=== PATIENT | female | born 1960 | race Caucasian/White ===

== ENCOUNTER → 2018-03-10 | Outpatient (CLI) | payer OTHER ==
[~2018-03-10] MED LIST: BUSP15; Butalbital-Caf1 EACH PO; CALC1.25T; CYAN1000 PO; Estradiol1 MG PO; FENT25TP; Flexeril 10 mg10 MG PO; HYDACE10B; HYDHCL25; LIDO700A20 TOP; Norco 10-325 T1 EACH PO; OMEP20ER; QVAR7.3 G1; Robaxin500 MG PO; SOMA250 MG; TRAZ100; VENL150ER; Verotin-Gr Cap1 EACH PO
[2018-03-13 20:53] LABS: Methylmalonic Acid mmol/molCRE 0.6 (0.0-3.6); Methylmalonic Acid umol/L 3.3 umol/L
== END | disposition home or self-care (01) ==
LOC: LAB 17:14 → LAB SHORT 17:14
PROVIDERS: Nurse Practitioner Family
DX: G25.81 Restless legs syndrome (principal)
CPT/HCPCS: 82570; 83921

== ENCOUNTER → 2019-11-04 | Outpatient (CLI) | payer OTHER | END | disposition home or self-care (01) | LOC: LAB SHORT 18:30 → LAB 18:30 | DX: R30.9 Painful micturition, unspecified (principal) | CPT/HCPCS: 87077; 87086; 87186 ==

== ENCOUNTER → 2020-08-30 | Outpatient (CLI) | payer OTHER ==
[~2020-08-30] MED LIST changes: +B-121000 MC7 PO; +Buspirone HCl30 MG PO; +CYCL10 PO; +ESTRADIOL1 MG PO; +FURO20 PO; +HYDHCL25 PO; +IPRAT-ALBUT 0.5-3 ML INH; +LISINOPRIL-HCT1 EAC1 PO; +Loratadine10 MG PO; +MELO7.5 PO; +Milk Thistle175 M1 PO; +Norco 7.5-3251 EACH; +ONDA4ODT MM; +POTA10T PO; +QVAR REDIHALE10.6 G2 INH; +SPIR50 PO; +VENL150ER PO; +ZEBUTAL 50-3251 EAC1
[2020-08-30 20:11] LABS: BASOPHILS ABSOLUTE AUTO 0.05 K/mm3 (0.00-0.23); BASOPHILS PERCENT AUTO 1 % (0-2); EOSINOPHILS ABSOLUTE AUTO 0.02 K/mm3 (0.00-0.68); EOSINOPHILS PERCENT AUTO 0 % (0-6); Hematocrit 41.3 % (33.0-51.0); Hemoglobin 14.3 g/dL (11.5-16.0); IMMATURE GRAN ABSOLUTE AUTO 0.01 K/mm3 (0.00-0.10); IMMATURE GRAN PERCENT AUTO 0 % (0-1); LYMPHOCYTES ABSOLUTE AUTO 1.24 K/mm3 (0.84-5.20); LYMPHOCYTES PERCENT AUTO 22 % (21-46); MONOCYTES ABSOLUTE AUTO 0.65 K/mm3 (0.16-1.47); MONOCYTES PERCENT AUTO 12 % (4-13); Mean Corpuscular HGB 35.7 pg (26.0-34.0); Mean Corpuscular HGB Conc 34.6 g/dL (31.5-36.5); Mean Corpuscular Volume 103 fL (80-100); Mean Platelet Volume 12.3 fL (9.1-12.4); NEUTROPHILS ABSOLUTE AUTO 3.56 K/mm3 (1.96-9.15); NEUTROPHILS PERCENT AUTO 64 % (41-73); Platelet Count 126 K/mm3 (150-400); RDW Coefficient Variation 13.6 % (11.7-14.2); RDW Standard Deviation 51.8 fL (35.1-46.3); Red Blood Cell Count 4.01 M/mm3 (3.80-5.20); White Blood Cell Count 5.53 K/mm3 (4.00-11.30)
[2020-08-30 20:54] LABS: Alanine Aminotransfer (ALT/SGP 74 U/L (12-78); Albumin, Blood 2.3 g/dL (3.4-5.0); Albumin/Globulin Ratio 0.6 (0.8-1.8); Alk Phos 334 U/L (50-136); Anion Gap 6 mmol/L (6-16); Aspartate Aminotrans (AST/SGOT 136 U/L (12-37); Bilirubin, Total 1.8 mg/dL (0.1-1.0); Blood Urea Nitrogen 7 mg/dL (8-24); Bun/Creatinine Ratio 14.2 (12.0-20.0); CO2, Blood 23 mmol/L (21-32); Calcium, Blood 8.7 mg/dL (8.5-10.1); Chloride, Blood 108 mmol/L (98-108); Creatinine, Blood 0.49 mg/dL (0.40-1.00); Globulin, Blood 3.8 g/dL (2.2-4.0); Glomerular Filtration Rate >60 (60-); Glucose, Blood 95 mg/dL (70-99); Potassium, Blood 4.6 mmol/L (3.5-5.5); Sodium, Blood 137 mmol/L (136-145); Total Protein, Blood 6.1 g/dL (6.4-8.2)
== END | disposition home or self-care (01) ==
LOC: LAB 19:18 → LAB SHORT 19:18
PROVIDERS: Nurse Practitioner
DX: R14.0 Abdominal distension (gaseous) (principal); R60.0 Localized edema
CPT/HCPCS: 80053; 83880; 85025

== ENCOUNTER 2020-09-16 13:24 | Day surgery (SDC) | payer OTHER ==
[~2020-09-16] VITALS: Ht 157.5 cm; Wt 75.4 kg
[~2020-09-16 13:24] MED LIST changes: -B-121000 MC7 PO; -Buspirone HCl30 MG PO; -CYCL10 PO; -ESTRADIOL1 MG PO; -FURO20 PO; -HYDHCL25 PO; -IPRAT-ALBUT 0.5-3 ML INH; -LISINOPRIL-HCT1 EAC1 PO; -Loratadine10 MG PO; -MELO7.5 PO; -Milk Thistle175 M1 PO; -Norco 7.5-3251 EACH; -ONDA4ODT MM; -POTA10T PO; -QVAR REDIHALE10.6 G2 INH; -SPIR50 PO; -VENL150ER PO; -ZEBUTAL 50-3251 EAC1
[2020-09-16] MEDS ORDERED: Milk Thistle175 M1 PO (14:18)
[2020-09-16] MEDS ORDERED: B-121000 MC7 PO (14:18)
--- NOTE | 2020-09-16 15:14 | NUR ---
09/16/20 1514 Celena Oconnor History, Chart, Medications and Allergies reviewed before start of procedure. MAC CASE WITH DR BAUM. SEE ANETHES[facility] RECORD FOR CARE
--- NOTE | 2020-09-16 16:52 | NUR ---
Patient up to Ambulate independently. Gait steady. Discharge instructions reviewed with patient. Patient verbalizes understanding. Copy given to patient to take home. Discharged via wheelchair to [facility]. BELONGINGS WITH PT. PT [id number]. NO ACUTE CHANGES WHILE IN MY CARE
[2020-09-17] MEDS ORDERED: SPIR50 PO (10:27)
[2020-09-17] MEDS ORDERED: CYCL10 PO (10:27)
[2020-09-17] MEDS ORDERED: POTA10T PO (10:28)
[2020-09-17] MEDS ORDERED: ONDA4ODT MM (10:28)
[2020-09-17] MEDS ORDERED: FURO20 PO (10:28)
[2020-09-17] MEDS ORDERED: IPRAT-ALBUT 0.5-3 ML INH (10:29)
[2020-09-17] MEDS ORDERED: ZEBUTAL 50-3251 EAC1 (10:29)
[2020-09-17] MEDS ORDERED: Norco 7.5-3251 EACH (10:30)
[2020-09-17] MEDS ORDERED: HYDHCL25 PO (10:30)
[2020-09-17] MEDS ORDERED: Loratadine10 MG PO (10:31)
[2020-09-17] MEDS ORDERED: MELO7.5 PO (10:31)
[2020-09-17] MEDS ORDERED: QVAR REDIHALE10.6 G2 INH (10:31)
[2020-09-17] MEDS ORDERED: LISINOPRIL-HCT1 EAC1 PO (10:32)
[2020-09-17] MEDS ORDERED: Buspirone HCl30 MG PO (10:32)
[2020-09-17] MEDS ORDERED: VENL150ER PO (10:32)
[2020-09-17] MEDS ORDERED: ESTRADIOL1 MG PO (10:33)
== END 2020-09-16 22:54 | disposition home or self-care (01) ==
LOC: ORD 13:24 → ORSCMMR 13:24 → ORD 13:45
PROVIDERS: Internal Medicine Gastroenterology
PROC: 0DJ08ZZ Inspection of Upper Intestinal Tract, Via Natural or Artificial Opening Endoscopic (ICD-10-PCS; principal; 2020-09-16 13:45)
DX: K74.60 Unspecified cirrhosis of liver (principal); Z98.84 Bariatric surgery status; Z87.11 Personal history of peptic ulcer disease; R11.0 Nausea; R10.9 Unspecified abdominal pain; K21.9 Gastro-esophageal reflux disease without esophagitis; F41.8 Other specified anxiety disorders; J45.909 Unspecified asthma, uncomplicated; F17.210 Nicotine dependence, cigarettes, uncomplicated; E66.9 Obesity, unspecified; Z68.30 Body mass index [BMI] 30.0-30.9, adult; Z79.899 Other long term (current) drug therapy
CPT/HCPCS: J2704; J7120; U0003

== ENCOUNTER 2020-09-17 09:49 | Emergency (ER) | payer OTHER ==
[~2020-09-17] VITALS: Ht 157.5 cm; Wt 74.8 kg
[~2020-09-17 09:49] MED LIST changes: +B-121000 MC7 PO; +Milk Thistle175 M1 PO
[2020-09-17] MEDS ORDERED: SPIR50 PO (10:27)
[2020-09-17] MEDS ORDERED: CYCL10 PO (10:27)
[2020-09-17] MEDS ORDERED: FURO20 PO (10:28)
[2020-09-17] MEDS ORDERED: POTA10T PO (10:28)
[2020-09-17] MEDS ORDERED: ONDA4ODT MM (10:28)
[2020-09-17] MEDS ORDERED: ZEBUTAL 50-3251 EAC1 (10:29)
[2020-09-17] MEDS ORDERED: IPRAT-ALBUT 0.5-3 ML INH (10:29)
[2020-09-17] MEDS ORDERED: Norco 7.5-3251 EACH (10:30)
[2020-09-17] MEDS ORDERED: HYDHCL25 PO (10:30)
[2020-09-17] MEDS ORDERED: QVAR REDIHALE10.6 G2 INH (10:31)
[2020-09-17] MEDS ORDERED: Loratadine10 MG PO (10:31)
[2020-09-17] MEDS ORDERED: MELO7.5 PO (10:31)
[2020-09-17] MEDS ORDERED: VENL150ER PO (10:32)
[2020-09-17] MEDS ORDERED: Buspirone HCl30 MG PO (10:32)
[2020-09-17] MEDS ORDERED: LISINOPRIL-HCT1 EAC1 PO (10:32)
[2020-09-17] MEDS ORDERED: ESTRADIOL1 MG PO (10:33)
[2020-09-17 10:45] LABS: BASOPHILS ABSOLUTE AUTO 0.04 K/mm3 (0.00-0.23); BASOPHILS PERCENT AUTO 1 % (0-2); EOSINOPHILS ABSOLUTE AUTO 0.03 K/mm3 (0.00-0.68); EOSINOPHILS PERCENT AUTO 1 % (0-6); Hematocrit 39.6 % (33.0-51.0); Hemoglobin 13.8 g/dL (11.5-16.0); IMMATURE GRAN ABSOLUTE AUTO 0.02 K/mm3 (0.00-0.10); IMMATURE GRAN PERCENT AUTO 1 % (0-1); LYMPHOCYTES ABSOLUTE AUTO 0.94 K/mm3 (0.84-5.20); LYMPHOCYTES PERCENT AUTO 22 % (21-46); MONOCYTES ABSOLUTE AUTO 0.49 K/mm3 (0.16-1.47); MONOCYTES PERCENT AUTO 11 % (4-13); Mean Corpuscular HGB 35.8 pg (26.0-34.0); Mean Corpuscular HGB Conc 34.8 g/dL (31.5-36.5); Mean Corpuscular Volume 103 fL (80-100); Mean Platelet Volume 10.5 fL (9.1-12.4); NEUTROPHILS ABSOLUTE AUTO 2.78 K/mm3 (1.96-9.15); NEUTROPHILS PERCENT AUTO 65 % (41-73); Platelet Count 141 K/mm3 (150-400); RDW Coefficient Variation 13.9 % (11.7-14.2); RDW Standard Deviation 52.1 fL (35.1-46.3); Red Blood Cell Count 3.86 M/mm3 (3.80-5.20)
[2020-09-17 11:04] LABS: Alanine Aminotransfer (ALT/SGP 42 U/L (12-78); Albumin/Globulin Ratio 0.5 (0.8-1.8); Alk Phos 278 U/L (50-136); Anion Gap 8 mmol/L (6-16); Aspartate Aminotrans (AST/SGOT 56 U/L (12-37); Bilirubin, Total 1.4 mg/dL (0.1-1.0); Blood Urea Nitrogen 7 mg/dL (8-24); Bun/Creatinine Ratio 12.4 (12.0-20.0); CO2, Blood 25 mmol/L (21-32); Calcium, Blood 8.8 mg/dL (8.5-10.1); Chloride, Blood 107 mmol/L (98-108); Creatinine, Blood 0.56 mg/dL (0.40-1.00); Globulin, Blood 3.8 g/dL (2.2-4.0); Glomerular Filtration Rate >60 (60-); Glucose, Blood 69 mg/dL (70-99); International Normalized Ratio 1.09; Potassium, Blood 3.8 mmol/L (3.5-5.5); Prothrombin Time Results 11.6 Sec (9.7-11.5); Sodium, Blood 140 mmol/L (136-145); Total Protein, Blood 5.8 g/dL (6.4-8.2)
[2020-09-17 12:53] LABS: Automated BF WBC Count 0.109 K/mm3 (0-999); Body Fluid WBC Count 109 /mm3 (0-999)
[2020-09-17 13:13] LABS: Albumin, Body Fluid 0.3 g/dL; Amylase, Body Fluid 2 U/L; Glucose, Body Fluid 75 mg/dL; Lactate Dehydrogenase, Body Fl 47 U/L; Protein, Body Fluid 0.8 g/dL
[2020-09-17 13:17] LABS: RBC Count, Body Fluid 4 /mm3 (0-0)
[2020-09-17 13:21] LABS: Total Cell Count, Body Fluid 100
[2020-09-17 13:24] LABS: Appearance, Body Fluid Clear (Clear); Color, Body Fluid L Yellow (None-Yellow)
== END 2020-09-17 14:15 | disposition home or self-care (01) ==
LOC: ER 09:49
PROVIDERS: Emergency Medicine
DX: R18.8 Other ascites (principal); R06.02 Shortness of breath; J45.909 Unspecified asthma, uncomplicated; F17.200 Nicotine dependence, unspecified, uncomplicated; Z88.6 Allergy status to analgesic agent; Z79.899 Other long term (current) drug therapy
CPT/HCPCS: 36415; 49083; 80053; 82042; 82140; 82150; 82248; 82945; 83615; 84157; 85025; 85610; 85730; 86850; 86900; 86901; 89051; 96374-59; 96375-59; 99284-25; A9270-GY; J2270; J2405

== ENCOUNTER → 2021-07-12 | Outpatient (CLI) | payer OTHER ==
[~2021-07-12] MED LIST changes: +ALBU2.5V5 INH; +ALBU90OI INH; +ALDACTONE100 MG PO; +Buspirone HCl30 MG PO; +CODEINE PO; +CYCL10 PO; +Calcium Carbon500 MG PO; +Cyclobenzaprine5 MG PO; +ESTRADIOL1 MG PO; +FERROUS SULFAT325 M3 PO; +FIORINAL PO; +FURO20 PO; +FURO40 PO; +HYDHCL25 PO; +IPRAT-ALBUT 0.5-3 ML INH; +LISINOPRIL-HCT1 EAC1 PO; +Loratadine10 MG PO; +MELO7.5 PO; +Norco 7.5-3251 EACH; +Norco 7.5-3251 EACH PO; +OMEP20ER PO; +ONDA4 PO; +ONDA4ODT MM; +POTA10T PO; +PROM25 PO; +QVAR REDIHALE10.6 G2 INH; +QVAR REDIHALE10.6 G3 INH; +SPIR50 PO; +VENL150ER PO; +Vitamin B-Comp1 EACH PO; +ZEBUTAL 50-3251 EAC1
[2021-07-15 16:08] LABS: COTININE Negative ng/mL (Cutoff=300)
== END ==
LOC: LAB SHORT 18:16 → LAB 18:16
PROVIDERS: Nurse Practitioner
DX: F17.201 Nicotine dependence, unspecified, in remission (principal)

== ENCOUNTER → 2025-09-30 | Outpatient (CLI) | payer OTHER | LOC: LAB SHORT 14:53 → LAB 14:53 | DX: R30.0 Dysuria (principal) | CPT/HCPCS: 87077; 87086; 87186 ==

== ENCOUNTER 2025-10-07 17:37 | Inpatient (IN) | payer OTHER | END 2025-10-10 14:12 | disposition home or self-care (01) | DRG 683 | LOC: ER 17:37 → MEDS 20:45 | PROVIDERS: ADMIT Student in an Organized Health Care Education/Training Program | DX: N17.9 Acute kidney failure, unspecified (principal); E87.1 Hypo-osmolality and hyponatremia; F41.1 Generalized anxiety disorder; D50.9 Iron deficiency anemia, unspecified; E86.0 Dehydration; J44.9 Chronic obstructive pulmonary disease, unspecified; Z88.6 Allergy status to analgesic agent; Z88.8 Allergy status to other drugs, medicaments and biological substances; Z87.891 Personal history of nicotine dependence; E87.6 Hypokalemia; E86.1 Hypovolemia; I95.9 Hypotension, unspecified; K21.9 Gastro-esophageal reflux disease without esophagitis ==